=== PATIENT | male | born 2005 | race Caucasian/White ===

== ENCOUNTER 2024-06-27 16:35 | Emergency (ER) | payer MEDICAID ==
[2024-06-27 16:58] VITALS: TEMP 98.8
--- NOTE | 2024-06-27 17:22 | ERPHSYRPT ---
- History of Present Illness Time Seen by Provider: 06/27/24 17:21 Patient Subjective Stated Complaint: pt c/o of vomiting since yesterday and hasn't used the restroom since then either Triage Nursing Assessment: Pt brought to the ER by another person, mariam maher, denies pain, reports that he can't keep anything down and he's not urinated since yesterday, pulses normal, skin n/w/d, no difficulties breathing, doesn't appear to be in any distress Physician History: 19-year-old male presents for emergency department for evaluation of nausea and vomiting. Patient reports he has not been able to tolerate p.o. since yesterday. Patient believes his urine output has decreased as well. No fever no rash no chest pain or shortness of breath. Patient denies abdominal pain. Symptoms are mild to moderate in intensity. No specific worsening or improving factors. Patient states he is otherwise healthy no significant past medical history. Patient voices no other complaints or concerns at this time. Portions of this note were created with voice recognition technology. There may be grammatical, spelling, punctuation or sound alike errors Timing/Duration: yesterday Severity: moderate Modifying Factors: Improves With: nothing Associated Symptoms: denies symptoms Allergies/Adverse Reactions: No Known Drug Allergies Allergy (Verified 06/27/24 16:58) Hx Influenza Vaccination/Date Given: Yes Hx Pneumococcal Vaccination/Date Given: Yes Travel Risk - International Travel Have you traveled outside of the country in past 3 weeks: No - Emerging Infectious Disease Are you exhibiting symptoms associated with any current EIDs: Yes Symptoms: Vomitting - Review of Systems Constitutional: No Symptoms, No Fever, No Chills Eyes: No Symptoms Ears, Nose, & Throat: No Symptoms Respiratory: No Symptoms, No Cough, No Dyspnea Cardiac: No Symptoms, No Chest Pain, No Edema, No Syncope Abdominal/Gastrointestinal: No Symptoms, No Abdominal Pain, No Nausea, No Vomiting, No Diarrhea Genitourinary Symptoms: No Symptoms, No Dysuria Musculoskeletal: No Symptoms, No Back Pain, No Neck Pain Skin: No Symptoms, No Rash Neurological: No Symptoms, No Dizziness, No Focal Weakness, No Sensory Changes Psychological: No Symptoms Endocrine: No Symptoms Hematologic/Lymphatic: No Symptoms Immunological/Allergic: No Symptoms All Other Systems: Reviewed and Negative - Past Medical History Pertinent Past Medical History: No - Past Surgical History Past Surgical History: No - Social History Smoking Status: Never smoker Exposure to second hand smoke: No Drug Use: none - Social Determinants of Health Will the patient participate in the screening: Yes Do you worry about a steady place to live?: No Do you have any problems with any of the following?: No known problems In the past 12 months,have you had to go without utilities?: No Transportation Issues: No Has anyone in your support network made you feel unsafe?: No Have you or anyone in your house had to go without enough: No - Nursing Vital Signs Nursing Vital Signs: Initial Vital Signs Temperature 98.8 F 06/27/24 16:51 Pulse Rate 89 06/27/24 16:51 Blood Pressure 121/80 06/27/24 16:51 O2 Sat by Pulse Oximetry 98 06/27/24 16:51 Pain Scale Pain Intensity 0 - Physical Exam General Appearance: no apparent distress, alert Eye Exam: PERRL/EOMI, eyes nml inspection Ears, Nose, Throat Exam: normal ENT inspection, TMs normal, pharynx normal, mois t mucous membranes Neck Exam: normal inspection, non-tender, supple, full range of motion Respiratory Exam: normal breath sounds, lungs clear, No respiratory distress Cardiovascular Exam: regular rate/rhythm, normal heart sounds, normal peripheral pulses Gastrointestinal/Abdomen Exam: soft, normal bowel sounds, No tenderness, No mass Back Exam: normal inspection, normal range of motion, No CVA tenderness, No vertebral tenderness Extremity Exam: normal inspection, normal range of motion, pelvis stable Neurologic Exam: alert, oriented x 3, cooperative, normal mood/affect, sensation nml, No motor deficits Skin Exam: normal color, warm, dry, No rash Lymphatic Exam: No adenopathy SpO2 Interpretation: normal SpO2: 98 O2 Delivery: Room Air - Course Nursing assessment & vital signs reviewed: Yes Ordered Tests: Active Orders 24 hr Category Date Time Status IV Insertion STAT Care 06/27/24 17:20 Active CBC W DIFF Stat Lab 06/27/24 17:40 Completed CMP Stat Lab 06/27/24 17:40 Completed Medication Summary Discontinued Medications Generic Name Dose Route Start Last Admin Trade Name Freq PRN Reason Stop Dose Admin Sodium Chloride 1,000 mls @ 999 mls/hr 06/27/24 17:20 06/27/24 17:49 Sodium Chloride 0.9% 1000 Ml IV 06/27/24 18:20 999 mls/hr .Q1H1M STA Administration Sodium Chloride Confirm 06/27/24 17:48 Sodium Chloride 0.9% 1000 Ml Administered 06/27/24 17:49 Dose 1,000 mls @ ud .ROUTE .K-Bioclones ONE Prochlorperazine Edisylate 10 mg 06/27/24 17:21 06/27/24 17:51 Prochlorperazine Edisylate 10 Mg/2 Ml Vial IV 06/27/24 17:22 10 mg STAT ONE Administration Prochlorperazine Edisylate Confirm 06/27/24 17:47 Prochlorperazine Edisylate 10 Mg/2 Ml Vial Administered 06/27/24 17:48 Dose 10 mg .ROUTE .[facility] Lab/Rad Data: Laboratory Result Diagrams 06/27/24 17:40 06/27/24 17:40 Laboratory Results 06/27/24 06/27/24 Range/Units 17:40 17:40 WBC 5.0 (4.23-9.07) x10^3/uL RBC 5.23 (4.63-6.08) x10^6/uL Hgb 15.7 (13.7-17.5) g/dL Hct 45.7 (40.1-51.0) % MCV 87.4 (79.0-92.2) fL MCH 30.0 (25.7-32.2) pg MCHC 34.4 (32.3-36.5) g/dL RDW 11.8 (11.6-14.4) % Plt Count 213 (163-337) x10^3/uL MPV 10.1 (9.4-12.4) fL Gran % 70.0 H (34.0-67.9) % Immature Gran % (Auto) 0.6 H (0.001-0.429) % Nucleat RBC Rel Count 0.0 (0.00-0.2) % Eos # (Auto) 0.01 L (0.04-0.54) x10^3/uL Immature Gran # (Auto) 0.03 (0.001-0.031) x10^3u/L Absolute Lymphs (auto) 0.75 L (1.32-3.57) x10^3/uL Absolute Monos (auto) 0.70 (0.30-0.82) x10^3/uL Absolute Nucleated RBC 0.00 (0.00-0.012) x10^3u/L Lymphocytes % 14.9 L (21.8-53.1) % Monocytes % 13.9 H (5.3-12.2) % Eosinophils % 0.2 L (0.8-7.0) % Basophils % 0.4 (0.2-1.2) % Absolute Granulocytes 3.51 (1.78-5.38) x10^3/uL Basophils # 0.02 (0.01-0.08) x10^3/uL Sodium 135 (135-145) mmol/L Potassium 4.2 (3.5-5.1) mmol/L Chloride 98 (98-107) mmol/L Carbon Dioxide 22 (22-30) mmol/L Anion Gap 19.6 H (5-15) MEQ/L BUN 17 (9-20) mg/dL Creatinine 1.04 (0.66-1.25) mg/dL Estimated GFR 104.8 ML/MIN Glucose 97 (74-106) mg/dL Calcium 9.7 (8.4-10.2) mg/dL Total Bilirubin 0.70 (0.2-1.3) mg/dL AST 36 (17-59) U/L ALT 20 (0-50) U/L Alkaline Phosphatase 120 (38-126) U/L Serum Total Protein 8.6 H (6.3-8.2) g/dL Albumin 5.3 H (3.5-5.0) g/dL - Progress Progress: improved Progress Note: 19-year-old male presents to our ED for evaluation of nausea vomiting decreased urine output. Patient concerned with dehydration. Physical exam essentially nonremarkable. Laboratory workup nonremarkable. Patient received Compazine for nausea. Compazine was chosen as the antiemetic as patient did express he had history of migraine headaches. Patient felt a migraine coming on. Symptoms resolved. Patient tolerating p.o. IV fluids infused. Patient conversant well- appearing in no distress. Patient reports he is ready for discharge. A prescription for Zofran forwarded to patient's pharmacy. Mother at bedside. They voiced no other complaints or concerns at this time. Portions of this note were created with voice recognition technology. There may be grammatical, spelling, punctuation or sound alike errors Complexity of problem addressed is moderate acute complicated no critical care time. Complex of data reviewed and analyzed is moderate. Test ordered test reviewed results analyzed and correlated clinically with history and physical exam. Risk of complication and or risk of morbidity/mortality of patient management is low. Vital stable. Time spent to discharge patient is approximately 10 minutes. Plan of care established for shared decision making. No social determinants of health present to impede follow-up. Portions of this note were created with voice recognition technology. There may be grammatical, spelling, punctuation or sound alike errors 06/27/24 18:25 Counseled pt/family regarding: diagnosis, need for follow-up - Departure Departure Disposition: Home Clinical Impression: Nausea & vomiting, Dehydration Condition: Stable Critical Care Time: No Referrals: JYOTI DOWNS, [Primary Care Provider] - Follow up/PCP as directed Additional Instructions: Discharge/Care Plan ALLYSON GARAY was seen on 06/27/24 in the Emergency Room. The patient was counseled regarding Diagnosis,Lab results, Imaging studies, need for follow up and when to return to the Emergency Room. Prescriptions given: Discharge Note I have spoken with the patient and/or caregivers. I have explained the patient's condition, diagnosis and treatment plan based on the information available to me at this time. I have answered the patient's and/or caregiver's questions and addressed any concerns. The patient and/or caregivers have as good understanding of the patient's diagnosis, condition and treatment plan as can be expected at this point. The vital signs have been stable. The patient's condition is stable and appropriate for discharge from the emergency department. The patient will pursue further outpatient evaluation with the primary care physician or other designated or consulting physician as outlined in the discharge instructions. The patient and/or caregivers are agreeable to this plan of care and follow-up instructions have been explained in detail. The patient and/or caregivers have received these instruction. The patient/and or caregivers are aware that any significant change in condition or worsening of symptoms should prompt an immediate return to this or the closest emergency department or call 911. Prescriptions: Ondansetron ODT 4 MG [Zofran Odt 4 mg] 4 mg PO Q6H PRN PRN #10 tablet PRN Reason: Vomiting
[2024-06-27] MEDS ORDERED: Compazine 10 MG/2 ML ONE (17:47)
[2024-06-27] MEDS ORDERED: Sodium Chloride 0.9% 1000 ML 1,000 ML ONE (17:48)
[2024-06-27] MEDS: Sodium Chloride 0.9% 1000 ML 1,000 ML IV STA (17:49)
[2024-06-27] MEDS: Compazine 10 MG/2 ML IV ONE (17:51)
[2024-06-27 17:53] LABS: Absolute Neutrophil Ct (ANC) 3.51 x10^3/uL (1.78-5.38); BASOPHIL % 0.4 % (0.2-1.2); Basophil (Absolute #) 0.02 x10^3/uL (0.01-0.08); Eosinophil % 0.2 % (0.8-7.0); Eosinophil (Absolute #) 0.01 x10^3/uL (0.04-0.54); Hematocrit 45.7 % (40.1-51.0); Hemoglobin 15.7 g/dL (13.7-17.5); IMMATURE GRAN # 0.03 x10^3u/L (0.001-0.031); IMMATURE GRAN % 0.6 % (0.001-0.429); Lymphocyte (Absolute #) 0.75 x10^3/uL (1.32-3.57); Lymphocytes % 14.9 % (21.8-53.1); Mean Cell Volume 87.4 fL (79.0-92.2); Mean Corpuscular Hgb Concent. 34.4 g/dL (32.3-36.5); Mean Platelet Volume 10.1 fL (9.4-12.4); Monocytes % 13.9 % (5.3-12.2); Platelet Count 213 x10^3/uL (163-337); Red Blood Count 5.23 x10^6/uL (4.63-6.08); Red Cell Distribution Width 11.8 % (11.6-14.4)
[2024-06-27 18:06] LABS: ALBUMIN 5.3 g/dL (3.5-5.0); ANION GAP 19.6 MEQ/L (5-15); BILIRUBIN,TOTAL 0.7 mg/dL (0.2-1.3); Calcium 9.7 mg/dL (8.4-10.2); Creatinine 1 1.04 mg/dL (0.66-1.25); EST GLOMERULAR FILTRATION RATE 104.8 ML/MIN; Potassium 4.2 mmol/L (3.5-5.1); Total Protein 8.6 g/dL (6.3-8.2)
[2024-06-27 18:50] VITALS: BP 119/70; PULSE 77; RESP 18; O2SAT 97
== END 2024-06-27 19:05 | disposition home or self-care (01) ==
LOC: ED 16:35
DX: R11.2 Nausea with vomiting, unspecified (principal); E86.0 Dehydration; Z79.899 Other long term (current) drug therapy
CPT/HCPCS: 36415; 80053; 85025; 96374; 99284

== ENCOUNTER 2025-03-11 09:01 | Emergency (ER) | payer OTHER ==
[2025-03-11 09:08] VITALS: TEMP 98.3
[2025-03-11 09:33] LABS: BASOPHIL % 0.4 % (0.2-1.2); Basophil (Absolute #) 0.05 x10^3/uL (0.01-0.08); Eosinophil (Absolute #) 0.10 x10^3/uL (0.04-0.54); Hematocrit 41.7 % (40.1-51.0); Hemoglobin 13.9 g/dL (13.7-17.5); IMMATURE GRAN # 0.10 x10^3u/L (0.001-0.031); IMMATURE GRAN % 0.8 % (0.001-0.429); Lymphocyte (Absolute #) 2.46 x10^3/uL (1.32-3.57); Mean Corpuscular Hemoglobin 30.5 pg (25.7-32.2); Mean Corpuscular Hgb Concent. 33.3 g/dL (32.3-36.5); Monocyte (Absolute #) 0.52 x10^3/uL (0.30-0.82); NUCLEATED RBC # 0.00 x10^3u/L (0.00-0.012); NUCLEATED RBC % 0.0 % (0.00-0.2); Platelet Count 351 x10^3/uL (163-337); Red Blood Count 4.56 x10^6/uL (4.63-6.08); White Blood Count 12.3 x10^3/uL (4.23-9.07)
--- NOTE | 2025-03-11 09:33 | ERPHSYRPT ---
- History of Present Illness Time Seen by Provider: 03/11/25 09:04 Physician History: Intentional overdose, Brought by EMS, apparently the patient took an overdose of prescribed antidepressants last night around midnight, patient is feeling jittery this morning, patient states that he is transitioning, he is followed at [facility] and by his primary care physician, he does not have a psychiatrist or therapist, he has in the past held a gun to his head but he was caught by his parents and put the gun away, this was several years ago, he has never been admitted for psychiatric care, 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,He denies any illicit drug use Timing/Duration: hour(s) (9) Severity of Symptoms-Max: moderate Severity of Symptoms-Current: moderate Context related to: sexual orientation Suicidal thoughts: ingestion Associated Symptoms: confused, frustrated Allergies/Adverse Reactions: No Known Drug Allergies Allergy (Verified 03/11/25 09:45) Home Medications: Buspirone HCl 5 mg [Buspar 5 mg] 5 mg PO TID 03/11/25 [History] Escitalopram Oxalate [Lexapro] 20 mg PO DAILY 03/11/25 [History] Spironolactone 50 mg PO BID 03/11/25 [History] estradioL [Estradiol] 2 mg PO CLARIFY 03/11/25 [History] Hx Influenza Vaccination/Date Given: Yes Hx Pneumococcal Vaccination/Date Given: Yes Travel Risk - Emerging Infectious Disease Are you exhibiting symptoms associated with any current EIDs: Yes Symptoms: Vomitting - Past Medical History Pertinent Past Medical History: No - Past Surgical History Past Surgical History: No - Social History Smoking Status: Never smoker Exposure to second hand smoke: No Drug Use: none - Social Determinants of Health Will the patient participate in the screening: Yes Do you worry about a steady place to live?: No In the past 12 months,have you had to go without utilities?: No Transportation Issues: No Has anyone in your support network made you feel unsafe?: No Have you or anyone in your house had to go w/o enough food: No - Nursing Vital Signs Nursing Vital Signs: Initial Vital Signs Temperature 98.3 F 03/11/25 09:02 Pulse Rate 87 03/11/25 09:02 Respiratory Rate 16 03/11/25 09:02 Blood Pressure 149/102 03/11/25 09:02 O2 Sat by Pulse Oximetry 99 03/11/25 09:02 Pain Scale Pain Intensity 0 - Physical Exam General Appearance: no apparent distress, alert Eyes, Ears, Nose, Throat Exam: normal ENT inspection, pharynx normal, moist mucous membranes Neck Exam: normal inspection, non-tender, supple Respiratory Exam: normal breath sounds, lungs clear, No respiratory distress Cardiovascular Exam: regular rate/rhythm, No edema Gastrointestinal/Abdominal Exam: soft, No tenderness, No distention Extremities Exam: normal inspection, normal range of motion, No evidence of injury, No edema Current Suicidality: denies suicide plan Neurological Exam: alert, vp security II-XII nml as tested, oriented x 3 Appearance: appropriate appearance Behavior/Eye Contact/Speech: alert & cooperative, normal speech, avoids eye contact Thoughts/Hallucinations: normal thought pattern, no apparent hallucination Skin Exam: normal color, warm, dry, No rash SpO2 Interpretation: normal SpO2: 99 Ordered Tests: Active Orders 24 hr Category Date Time Status Psychiatric Consult STAT Cons 03/11/25 09:26 Active ACETAMINOPHEN Stat Lab 03/11/25 09:30 Completed CBC W DIFF Stat Lab 03/11/25 09:30 Completed CMP Stat Lab 03/11/25 09:30 Completed SALICYLATE Stat Lab 03/11/25 09:30 Completed UA W/RFX UR CULTURE Stat Lab 03/11/25 09:44 Completed Urine Triage Profile Stat Lab 03/11/25 09:44 Completed Lab/Rad Data: Laboratory Result Diagrams 03/11/25 09:30 03/11/25 09:30 Laboratory Results 03/11/25 03/11/25 03/11/25 Range/Units 09:44 09:44 09:30 WBC (4.23-9.07) x10^3/uL RBC (4.63-6.08) x10^6/uL Hgb (13.7-17.5) g/dL Hct (40.1-51.0) % MCV (79.0-92.2) fL MCH (25.7-32.2) pg MCHC (32.3-36.5) g/dL RDW (11.6-14.4) % Plt Count (163-337) x10^3/uL MPV (9.4-12.4) fL Gran % (34.0-67.9) % Immature Gran % (Auto) (0.001-0.429) % Nucleat RBC Rel Count (0.00-0.2) % Eos # (Auto) (0.04-0.54) x10^3/uL Immature Gran # (Auto) (0.001-0.031) x10^3u/L Absolute Lymphs (auto) (1.32-3.57) x10^3/uL Absolute Monos (auto) (0.30-0.82) x10^3/uL Absolute Nucleated RBC (0.00-0.012) x10^3u/L Lymphocytes % (21.8-53.1) % Monocytes % (5.3-12.2) % Eosinophils % (0.8-7.0) % Basophils % (0.2-1.2) % Absolute Granulocytes (1.78-5.38) x10^3/uL Basophils # (0.01-0.08) x10^3/uL Sodium 136 (135-145) mmol/L Potassium 3.9 (3.5-5.1) mmol/L Chloride 102 (98-107) mmol/L Carbon Dioxide 26 (22-30) mmol/L Anion Gap 12.5 (5-15) MEQ/L BUN 12 (9-20) mg/dL Creatinine 0.86 (0.66-1.25) mg/dL Estimated GFR 125.6 ML/MIN Glucose 114 H (74-106) mg/dL Calcium 9.4 (8.4-10.2) mg/dL Total Bilirubin 0.40 (0.2-1.3) mg/dL AST 28 (17-59) U/L ALT 23 (0-50) U/L Alkaline Phosphatase 100 (38-126) U/L Serum Total Protein 8.4 H (6.3-8.2) g/dL Albumin 4.6 (3.5-5.0) g/dL Urine Color Yellow (Yellow) Urine Appearance Clear (Clear) Urine pH 7.0 (4.6-8.0) Ur Specific [place] 1.015 (1.005-1.030) Urine Protein Negative (Negative) Urine Glucose (UA) Negative (Negative) mg/dL Urine Ketones Negative (Negative) Urine Blood Negative (Negative) Urine Nitrite Negative (Negative) Urine Bilirubin Negative (Negative) Urine Urobilinogen 1.0 A (0.2) mg/dL Ur Leukocyte Esterase Small A (Negative) U Hyaline Cast (Auto) NONE SEEN (0-2) /LPF Urine Microscopic RBC 0-2 (0-5) /HPF Urine Microscopic WBC 6-10 A (0-5) /HPF Ur Epithelial Cells Many A (None Seen) /HPF Urine Bacteria None Seen (None Seen) /HPF Urine Culture Reflexed NO (NO) Salicylates < 1.0 L (2-20) mg/dL Urine Opiates Level NEGATIVE (NEGATIVE) Ur Methadone NEGATIVE (NEGATIVE) Acetaminophen < 10 L (10-30) ug/ml Urine Barbiturates NEGATIVE (NEGATIVE) Ur Phencyclidine (PCP) NEGATIVE (NEGATIVE) Urine Amphetamine NEGATIVE (NEGATIVE) U Benzodiazepine Level NEGATIVE (NEGATIVE) Urine Cocaine NEGATIVE (NEGATIVE) Urine Marijuana (THC) NEGATIVE (NEGATIVE) 03/11/25 Range/Units 09:30 WBC 12.3 H (4.23-9.07) x10^3/uL RBC 4.56 L (4.63-6.08) x10^6/uL Hgb 13.9 (13.7-17.5) g/dL Hct 41.7 (40.1-51.0) % MCV 91.4 (79.0-92.2) fL MCH 30.5 (25.7-32.2) pg MCHC 33.3 (32.3-36.5) g/dL RDW 11.7 (11.6-14.4) % Plt Count 351 H (163-337) x10^3/uL MPV 9.4 (9.4-12.4) fL Gran % 73.8 H (34.0-67.9) % Immature Gran % (Auto) 0.8 H (0.001-0.429) % Nucleat RBC Rel Count 0.0 (0.00-0.2) % Eos # (Auto) 0.10 (0.04-0.54) x10^3/uL Immature Gran # (Auto) 0.10 H (0.001-0.031) x10^3u/L Absolute Lymphs (auto) 2.46 (1.32-3.57) x10^3/uL Absolute Monos (auto) 0.52 (0.30-0.82) x10^3/uL Absolute Nucleated RBC 0.00 (0.00-0.012) x10^3u/L Lymphocytes % 20.0 L (21.8-53.1) % Monocytes % 4.2 L (5.3-12.2) % Eosinophils % 0.8 (0.8-7.0) % Basophils % 0.4 (0.2-1.2) % Absolute Granulocytes 9.04 H (1.78-5.38) x10^3/uL Basophils # 0.05 (0.01-0.08) x10^3/uL Sodium (135-145) mmol/L Potassium (3.5-5.1) mmol/L Chloride (98-107) mmol/L Carbon Dioxide (22-30) mmol/L Anion Gap (5-15) MEQ/L BUN (9-20) mg/dL Creatinine (0.66-1.25) mg/dL Estimated GFR ML/MIN Glucose (74-106) mg/dL Calcium (8.4-10.2) mg/dL Total Bilirubin (0.2-1.3) mg/dL AST (17-59) U/L ALT (0-50) U/L Alkaline Phosphatase (38-126) U/L Serum Total Protein (6.3-8.2) g/dL Albumin (3.5-5.0) g/dL Urine Color (Yellow) Urine Appearance (Clear) Urine pH (4.6-8.0) Ur Specific [place] (1.005-1.030) Urine Protein (Negative) Urine Glucose (UA) (Negative) mg/dL Urine Ketones (Negative) Urine Blood (Negative) Urine Nitrite (Negative) Urine Bilirubin (Negative) Urine Urobilinogen (0.2) mg/dL Ur Leukocyte Esterase (Negative) U Hyaline Cast (Auto) (0-2) /LPF Urine Microscopic RBC (0-5) /HPF Urine Microscopic WBC (0-5) /HPF Ur Epithelial Cells (None Seen) /HPF Urine Bacteria (None Seen) /HPF Urine Culture Reflexed (NO) Salicylates (2-20) mg/dL Urine Opiates Level (NEGATIVE) Ur Methadone (NEGATIVE) Acetaminophen (10-30) ug/ml Urine Barbiturates (NEGATIVE) Ur Phencyclidine (PCP) (NEGATIVE) Urine Amphetamine (NEGATIVE) U Benzodiazepine Level (NEGATIVE) Urine Cocaine (NEGATIVE) Urine Marijuana (THC) (NEGATIVE) - Progress Progress Note: 03/11/25 10:56 medically cleared for 03/11/25 13:42 Evaluated by , recommend admission 03/11/25 14:13 Patient be transferred to the [facility] - Departure Departure Disposition: Transfer Clinical Impression: Major depression, recurrent Qualifiers: Active/Remission status: currently active Major depression episode severity: s evere Psychotic features: without psychotic features Qualified Code(s): F33.2 - Major depressive disorder, recurrent severe without psychotic features Intentional drug overdose Qualifiers: Encounter type: initial encounter Qualified Code(s): T50.902A - Poisoning by unspecified drugs, medicaments and biological substances, intentional self-harm, initial encounter Condition: Fair Critical Care Time: No Referrals: JYOTI DOWNS DO [Primary Care Provider, [facility]] - Follow up/PCP as directed
[2025-03-11 09:51] LABS: Calcium 9.4 mg/dL (8.4-10.2); Carbon Dioxide 26 mmol/L (22-30); Creatinine 1 0.86 mg/dL (0.66-1.25); EST GLOMERULAR FILTRATION RATE 125.6 ML/MIN; Glucose 114 mg/dL (74-106); Potassium 3.9 mmol/L (3.5-5.1); SGOT/AST 28 U/L (17-59); SGPT/ALT 23 U/L (0-50); Total Protein 8.4 g/dL (6.3-8.2)
[2025-03-11 09:59] LABS: Glucose, Urine Negative (Negative); Protein,Urine Dip Negative (Negative); RBC 0-2 /HPF (0-5)
[2025-03-11 10:15] LABS: Amphetamine,Urine NEGATIVE (NEGATIVE); Barbiturate,Urine NEGATIVE (NEGATIVE); Benzodiazepine,Urine NEGATIVE (NEGATIVE); Cocaine,Urine NEGATIVE (NEGATIVE); Methadone,Urine NEGATIVE (NEGATIVE); Opiate,Urine NEGATIVE (NEGATIVE); PCP,Urine NEGATIVE (NEGATIVE); THC,Urine NEGATIVE (NEGATIVE)
[2025-03-11 14:08] VITALS: BP 141/86; PULSE 76; RESP 20
[2025-03-11 14:15] VITALS: O2SAT 99
== END 2025-03-11 14:45 ==
LOC: ED 09:01
DX: T43.222A Poisoning by selective serotonin reuptake inhibitors, intentional self-harm, initial encounter (principal); T43.592A Poisoning by other antipsychotics and neuroleptics, intentional self-harm, initial encounter; F33.2 Major depressive disorder, recurrent severe without psychotic features; R45.851 Suicidal ideations; F39 Unspecified mood [affective] disorder; F64.9 Gender identity disorder, unspecified; Z91.51 Personal history of suicidal behavior; Z79.899 Other long term (current) drug therapy
CPT/HCPCS: 36415; 80053; 80143; 80179; 80307; 81001; 85025; 93005; 93041; 99285; Q3014